=== PATIENT | female | born 1990 | race Caucasian/White ===

== ENCOUNTER 2017-09-22 14:39 | Emergency (ER) | payer OTHER ==
--- NOTE | 2017-09-22 15:56 | EDPHY ---
H & P Time Seen by Provider: 09/22/17 15:43 HPI/ROS: Chief complaint. Fever HPI. 27-year-old female with fever to 102 degrees over the past 4 days. She has runny nose and congestion. Pressure over both cheeks. Some sore throat. Nonproductive cough. She also has burning with urination. She fell down the stairs several days ago and has abrasion to her low back. She does seem to have some right flank pain as well. Otherwise she has been walking no leg weakness. ROS Constitutional. Fever Eyes. no problems with vision ENT. Congestion and sore throat Cardiovascular. no chest pain Respiratory. Cough Abdominal. no abdominal pain, no nausea/vomiting, no diarrhea . Burning with urination MS. no calf pain/swelling, no neck/back pain, no joint pain Skin. Abrasion to back Lymph. no swollen glands Neuro. no headache, no dizziness, no difficulty walking or with speech Past Medical/Surgical History: Healthy Social History: Single, nonsmoker, no alcohol Smoking Status: Never smoked Physical Exam: General Appearance: Alert well-developed female mild distress vital signs significant for temp 37.2 degrees Eyes: Pupils equal and round no pallor or injection. ENT, pharynx mildly injected without exudate. Tenderness over both maxillary sinuses to palpation Respiratory: There are no retractions, lungs are clear to auscultation. Cardiovascular: Regular rate and rhythm. Gastrointestinal: Abdomen soft not tender. Right flank pain Neurological: Awake and alert, sensory and motor exams grossly normal. Skin: Abrasion to low back from her fall without evidence of infection Musculoskeletal: Neck is supple nontender. Extremities symmetrical, full range of motion. Psychiatric: Patient is oriented X 3, there is no agitation. Constitutional: Initial Vital Signs Temperature (C) 37.2 C 09/22/17 14:40 Heart Rate 98 09/22/17 14:40 Respiratory Rate 18 09/22/17 14:40 Blood Pressure 121/77 H 09/22/17 14:40 O2 Sat (%) 98 09/22/17 14:40 O2 Delivery Mode Room Air Allergies/Adverse Reactions: No Known Allergies Allergy (Unverified 09/22/17 16:47) Home Medications: Medication Instructions Recorded Cephalexin [Keflex (*)] 500 mg PO TID #21 cap 09/22/17 Medical Decision Making Procedures: Ibuprofen Cephalexin in the emergency department. Urine sent for culture ED Course/Re-evaluation: Re-evaluation 4:40 p.m.. Patient and I discussed laboratory evaluation, treatment plan including criteria for return importance of follow-up further evaluation. She expresses understanding and agreement Differential Diagnosis: I considered upper respiratory infection and sinusitis. Patient has right flank pain. Part of workup for fever included the urinalysis and she has infected urine. I believe this is pyelonephritis - Data Points Laboratory Results: 09/22/17 09/22/17 16:00 16:00 Urine Color YELLOW Urine Appearance HAZY Urine pH 7.0 (5.0-7.5) Ur Specific [place] 1.011 (1.002-1.030) Urine Protein NEGATIVE (NEGATIVE) Urine Ketones NEGATIVE (NEGATIVE) Urine Blood 1+ H (NEGATIVE) Urine Nitrate NEGATIVE (NEGATIVE) Urine Bilirubin NEGATIVE (NEGATIVE) Urine Urobilinogen NEGATIVE EU EU (0.2-1.0) Ur Leukocyte Esterase 3+ H (NEGATIVE) Urine RBC Cancelled 10-15 /hpf H /hpf (0-3) Urine WBC Cancelled 50-182 /hpf H /hpf (0-3) Ur Epithelial Cells Cancelled TRACE /lpf /lpf (NONE-1+) Ur Renal Epithelial Cell Cancelled Urine Crystals Cancelled Ammonium Urate Crystals Cancelled Calcium Carbonate Cryst Cancelled Calcium Phosphate Cryst Cancelled Calcium Oxalate Crystal Cancelled Leucine Crystals Cancelled Cystine Crystals Cancelled Uric Acid Crystals Cancelled Triple Phos Crystals Cancelled Sulfonamide Crystals Cancelled Cholesterol Crystals Cancelled Tyrosine Crystals Cancelled Bilirubin Crystals Cancelled Amorphous Sediment Cancelled Urine Bacteria Cancelled TRACE /hpf H /hpf (NONE SEEN) Epithelial Casts Cancelled Fatty Casts Cancelled Hyaline Casts Cancelled Granular Casts Cancelled Waxy Casts Cancelled Broad Casts Cancelled RBC Casts Cancelled WBC Casts Cancelled Urine Mucus Cancelled TRACE /lpf /lpf (NONE-1+) Urine Trichomonas Cancelled Urine Yeast Cancelled Urine Sperm Cancelled Ur Oval Fat Bodies Cancelled Ur Free Fat Droplets Cancelled Urine Glucose NEGATIVE (NEGATIVE) Urine Comment Cancelled Medications Given: Discontinued Medications Ibuprofen (Motrin) 600 mg PO EDNOW ONE Stop: 09/22/17 16:11 Last Admin: 09/22/17 16:16 Dose: 600 mg Departure - Departure Disposition: Home, Routine, Self-Care Clinical Impression: Pyelonephritis Condition: Good Instructions: Urinary Tract Infection in Women (ED), Kidney Infection (ED) Additional Instructions: Drink plenty of fluids and stay hydrated. Tylenol 1000 mg every 4-6 hours, ibuprofen 600 mg every 6 hr as needed for fever and achiness. Return for vomiting or worsening symptoms. Recheck in 2 days if not improved Referrals: NONE *PRIMARY CARE P,. [Primary Care Provider] - As per Instructions Prescriptions: Cephalexin [Keflex (*)] 500 mg PO TID #21 cap
[2017-09-22] MEDS ORDERED: IBUPROFEN 600 MG TAB PO ONE (16:10)
[2017-09-22] MEDS ORDERED: CEPHALEXIN 500 MG CAP PO ONE (16:39)
[2017-09-22 17:04] VITALS: BP 122/67
== END 2017-09-22 17:08 | disposition home or self-care (01) ==
DX: N12 Tubulo-interstitial nephritis, not specified as acute or chronic (principal)

== ENCOUNTER 2017-09-23 18:45 | Emergency (ER) | payer OTHER ==
[2017-09-23] MEDS ORDERED: NS 1,000 ML IV ONE ×2 (19:16→21:13)
--- NOTE | 2017-09-23 19:31 | EDPHY ---
H & P Stated Complaint: flank pain Time Seen by Provider: 09/23/17 19:02 HPI/ROS: CHIEF COMPLAINT: Left flank pain HISTORY OF PRESENT ILLNESS: 27-year-old immunocompetent female seen emergency department yesterday and diagnosed with pyelonephritis, in the ER stating that she has been compliant with her Keflex but is complaining of worsened left flank pain with fever. No nausea or vomiting. Normal bowel movements. No rash. No trauma. PRIMARY CARE PROVIDER: REVIEW OF SYSTEMS: A ten point review of systems was performed and is negative with the exception of the items mentioned in the HPI PAST MEDICAL & SURGICAL HISTORY: No pertinent medical or surgical history SOCIAL HISTORY: Nonsmoker PHYSICAL EXAM (Prior to examination, patient consented to physical exam, hands were washed and my usual and customary physical exam procedures followed) 1) GENERAL: Well-developed, well-nourished, alert and oriented. Appears comfortable. 2) HEAD: Normocephalic, atraumatic 3) HEENT: Pupils equal, round, reactive to light bilaterally. Sclera anicteric. [Nasopharynx, oropharynx, clear, no lesions. Moist mucous membrane 4) NECK: Full range of motion, no meningeal signs. 5) LUNGS: Clear auscultation bilaterally, no wheezes, no rhonchi, no retractions. 6) HEART: Regular rate and rhythm, no murmur, no heave, no gallop. 7) ABDOMEN: No guarding, no rebound, no focal tenderness, negative McBurney's, negative Sahu's, negative Rovsing's, negative peritoneal sign, 8) MUSCULOSKELETAL: Moving all extremities, no focal areas of tenderness, no obvious trauma. No peripheral edema or discoloration. 9) BACK: Positive left CVA tenderness, no midline vertebral tenderness, no fluctuance, no step-off, no obvious trauma, no visual or palpable abnormality. 10) SKIN: No rash, no petechiae. 11) Psychiatric: Patient is oriented X 3, there is no agitation. DIFFERENTIAL DIAGNOSIS: In no particular include but limited to pyelonephritis , perinephric abscess, nephrolithiasis - Personal History LMP (Females 10-55): 8-14 Days Ago Current Tetanus/Diphtheria Vaccine: Yes Current Tetanus Diphtheria and Acellular Pertussis (TDAP): Yes - Medical/Surgical History Hx Asthma: No Hx Chronic Respiratory Disease: No Hx Diabetes: No Hx Cardiac Disease: No Hx Renal Disease: No Hx Cirrhosis: No Hx Alcoholism: No Hx HIV/AIDS: No Hx Splenectomy or Spleen Trauma: No Other PMH: UTI - Social History Smoking Status: Never smoked Constitutional: Initial Vital Signs Temperature (C) 37.1 C 09/23/17 18:51 Heart Rate 116 H 09/23/17 18:51 Respiratory Rate 16 09/23/17 18:51 Blood Pressure 147/82 H 09/23/17 18:51 O2 Sat (%) 96 09/23/17 18:51 O2 Delivery Mode Room Air Allergies/Adverse Reactions: No Known Allergies Allergy (Unverified 09/23/17 18:51) Home Medications: Medication Instructions Recorded Cephalexin [Keflex (*)] 500 mg PO TID #21 cap 09/22/17 levOFLOXACIN [levAQUIN (*)] 750 mg PO DAILY #5 tab 09/23/17 Medical Decision Making - Diagnostics Imaging Results: Imaging Impressions Abdomen/Pelvis Ultrasound 09/23/17 19:43 Impression: 1. No hydronephrosis. 2. No shadowing renal calculi or perinephric fluid. 3. Postvoid bladder residual 14 mL. 4. Top normal spleen size. Findings and recommendations discussed with Emergency Department physician, Kenny Balbuena PA-C, at 2112 hours, on September 23, 2017. Final report concurs with initial preliminary interpretation. Imaging: Discussed imaging studies w/ inbound call center representative Radiologist ED Course/Re-evaluation: 7:30 p.m.: I have reviewed the patient's old medical records reviewed her cultures of her urine yesterday. At this time I do not think the patient is septic. She is tachycardic and appears to be in a significant amount of discomfort. Will provide IV fluids, analgesia and dose of IV antibiotic. This time I do not anticipate hospitalization as she is able tolerate oral intake and has no comorbidities. Care of patient under supervision of secondary supervising physician Dr Morfin with whom I discussed case 9:30 p.m.: Re-evaluation, smiling, appears improved. She has been given dose of IV Levaquin and IV fluids. Noted to have leukocytosis. At this time I do not think the patient is septic. She is tolerating oral intake. At this time I think the patient can be discharged. She will be continued on oral Levaquin. If the patient develops inability to tolerate oral intake, recommend return to the ER. Discharged with analgesia. She feels comfortable being discharged. All questions and concerns addressed by myself. - Data Points Laboratory Results: Laboratory Results 09/23/17 19:20 09/23/17 19:20 09/23/17 09/23/17 09/23/17 19:20 19:20 19:20 WBC 22.51 10^3/uL H 10^3/uL (3.80-9.50) RBC 3.84 10^6/uL L 10^6/uL (4.18-5.33) Hgb 12.0 g/dL L g/dL (12.6-16.3) Hct 34.2 % L % (38.0-47.0) MCV 89.1 fL fL (81.5-99.8) MCH 31.3 pg pg (27.9-34.1) MCHC 35.1 g/dL g/dL (32.4-36.7) RDW 14.8 % % (11.5-15.2) Plt Count 216 10^3/uL 10^3/uL (150-400) MPV 9.8 fL fL (8.7-11.7) Neut % (Auto) Not Reported Lymph % (Auto) Not Reported Door % (Auto) Not Reported Eos % (Auto) Not Reported Baso % (Auto) Not Reported Nucleat RBC Rel Count Not Reported Absolute Neuts (auto) Not Reported Absolute Lymphs (auto) Not Reported Absolute Monos (auto) Not Reported Absolute Eos (auto) Not Reported Absolute Basos (auto) Not Reported Absolute Nucleated RBC Not Reported Immature Gran % Not Reported Seg Neutrophils % 85.0 % % Band Neutrophils % 0 % % Lymphocytes % 7.0 % % Monocytes % 8.0 % % Eosinophils % 0 % % Basophils % 0 % % Metamyelocytes % 0 % % Myelocytes % 0 % % Promyelocytes % 0 % % Blast Cells % 0 % % Immature Gran # Not Reported Absolute Seg Neuts 19.13 10^/uL H 10^/uL (1.70-6.50) Absolute Band Neuts 0.00 10^3/uL 10^3/uL (0.00-0.70) Absolute Lymphocytes 1.58 10^3/uL 10^3/uL (1.00-3.00) Absolute Monocytes 1.80 10^3/uL H 10^3/uL (0.30-0.80) Absolute Eosinophils 0.00 10^3/uL L 10^3/uL (0.03-0.40) Absolute Basophils 0.00 10^3/uL L 10^3/uL (0.02-0.10) Absolute Metamyelocyte 0.00 10^3/mL 10^3/mL (0.00-0.00) Absolute Myelocytes 0.00 10^3/mL 10^3/mL (0.00-0.00) Absolute Promyelocytes 0.00 10^3/uL 10^3/uL (0.00-0.00) Absolute Plasma Cells 0.00 10^3/uL 10^3/uL (0.00-0.00) RBC/WBC/PLT Morphology NORMAL (NORMAL) Absolute Blast Cells 0.00 10^3/uL 10^3/uL (0.00-0.00) Plasma Cells % 0 % % Platelet Estimate ADEQUATE (ADEQ) Smear Review By Pending Sodium 137 mEq/L mEq/L (135-145) Potassium 3.6 mEq/L mEq/L (3.3-5.0) Chloride 104 mEq/L mEq/L (97-110) Carbon Dioxide 21 mEq/l L mEq/l (22-31) Anion Gap 12 mEq/L mEq/L (8-16) BUN 7 mg/dL mg/dL (7-23) Creatinine 0.7 mg/dL mg/dL (0.6-1.0) Estimated GFR > 60 Glucose 122 mg/dL H mg/dL (70-100) Calcium 8.4 mg/dL L mg/dL (8.5-10.4) Beta HCG, Qual NEGATIVE Medications Given: Discontinued Medications Hydrocodone Bitart/Acetaminophen ([place] 5/325mg Prepack#6) 1 btl TAKEHOME EDNOW ONE Stop: 09/23/17 21:42 Last Admin: 09/23/17 22:03 Dose: 1 btl Sodium Chloride (Ns) 1,000 mls @ 0 mls/hr IV ONCE ONE PRN Reason: Wide Open Stop: 09/23/17 19:17 Last Admin: 09/23/17 19:33 Dose: 1,000 mls Levofloxacin/Dextrose (Levaquin 750 Mg (Premix)) 150 mls @ 100 mls/hr IV EDNOW ONE PRN Reason: Protocol Stop: 09/23/17 21:01 Last Admin: 09/23/17 19:45 Dose: 150 mls Sodium Chloride (Ns) 1,000 mls @ 0 mls/hr IV ONCE ONE PRN Reason: Wide Open Stop: 09/23/17 21:14 Last Admin: 09/23/17 21:17 Dose: 1,000 mls Morphine Sulfate (Morphine) 4 mg IVP EDNOW ONE Stop: 09/23/17 19:17 Last Admin: 09/23/17 19:34 Dose: 4 mg Departure - Departure Disposition: Home, Routine, Self-Care Clinical Impression: Pyelonephritis Condition: Good Instructions: Narcotic-Analgesic/Acetaminophen (By mouth), Kidney Infection (ED ) Additional Instructions: Return to the ER immediately if you experience flu like symptoms, inability to tolerate oral intake, nausea or vomiting, or any other symptoms that concern you. Stop taking your cephalexin (Keflex) medicine Referrals: Raya Berry MD [[facility] Primary Care Provider] - 1-2 days without fail Prescriptions: levOFLOXACIN [levAQUIN (*)] 750 mg PO DAILY #5 tab
[2017-09-23 19:38] LABS: PLATELET COUNT 216 10^3/uL (150-400)
[2017-09-23] MEDS ORDERED: HYDROCOD/APAP 5/325 PREPACK#6 BTL TAKEHOME ONE (21:41)
[2017-09-23 22:10] VITALS: BP 109/67
== END 2017-09-23 22:11 | disposition home or self-care (01) ==
DX: N12 Tubulo-interstitial nephritis, not specified as acute or chronic (principal)
CPT/HCPCS: 96365; J1956; J2270